=== PATIENT | female | born 1970 | race Caucasian/White ===

== ENCOUNTER → 2020-01-25 | Outpatient (CLI) | payer BC | LOC: MC.RAD 16:45 | DX: Z12.31 Encounter for screening mammogram for malignant neoplasm of breast (principal) ==

== ENCOUNTER → 2022-12-04 | Outpatient (CLI) | payer OTHER ==
[~2022-12-04] MED LIST: LIPITOR 40MG TA40 MG PO
== END ==
LOC: CANSCHCLI → COL.RAD 14:12 → MC.RAD 14:12 → COL.RAD 14:30 → MC.RAD 14:30
DX: Z12.31 Encounter for screening mammogram for malignant neoplasm of breast (principal)